=== PATIENT | female | born 1990 | race Caucasian/White ===

== ENCOUNTER 2019-01-01 07:49 | Emergency (ER) | payer OTHER ==
[2019-01-01 08:11] VITALS: BP 109/72
--- NOTE | 2019-01-01 08:20 | UC ---
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 Has had contact with strep. - History of Current Complaint Stated Complaint: ST Time Seen by Provider: 01/01/19 08:09 Hx Obtained From: Patient Hx Last Menstrual Period: 12/12/18 Onset/Duration: Gradual Onset, Lasting Days - 3 Severity: Moderate Pain Intensity: 8 Cough: None Associated Signs & Symptoms: Positive: Dysphagia - Epiglottits Risk Factors Epiglottis Risk Factors: Negative - Allergies/Home Medications Allergies/Adverse Reactions: Allergies Allergy/AdvReac Type Severity Reaction Status Date / Time No Known Allergies Allergy Verified 01/01/19 08:09 Home Medications: Home Medications Norethindrone/Eth Est .07/04NF [Junel (NF)] 1 tab PO DAILY 01/01/19 [ History Confirmed 01/01/19] PMH/Surg Hx/FS Hx/Imm Hx Previously Healthy: Yes - Surgical History Surgical History: None - Family History Known Family History: Positive: Non-Contributory - Social History Occupation: Employed Full-time Alcohol Use: Occasionally Substance Use Type: None Smoking Status (MU): Never Smoked Tobacco Review of Systems All Other Systems Reviewed And Are Negative: Yes Constitutional: Positive: Fatigue Skin: Positive: Negative Eyes: Positive: Negative ENT: Positive: Sore Throat Respiratory: Positive: Negative Cardiovascular: Positive: Negative Gastrointestinal: Positive: Negative Genitourinary: Positive: Negative Motor: Positive: Negative Neurovascular: Positive: Negative Musculoskeletal: Positive: Negative Neurological: Positive: Negative Psychological: Positive: Negative Is Patient Immunocompromised?: No Physical Exam Triage Information Reviewed: Yes Appearance: No Pain Distress, Ill-Appearing - looks mildly unwell Vital Signs: Initial Vital Signs Temp 98.2 F 01/01/19 08:07 Pulse 91 01/01/19 08:07 Resp 14 01/01/19 08:07 BP 109/72 01/01/19 08:07 Pulse Ox 99 01/01/19 08:07 Eyes: Positive: Conjunctiva Clear ENT: Positive: Pharyngeal erythema, Tonsillar swelling, Tonsillar exudate Dental Exam: Normal Neck: Positive: Supple, Nontender, Enlarged Nodes @ - tonsillar Respiratory: Positive: Lungs clear, Normal breath sounds Cardiovascular: Positive: RRR, No Murmur Musculoskeletal Exam: Normal Neurological Exam: Normal Psychological Exam: Normal Skin Exam: Normal Diagnostics - Laboratory Lab Results: Rapid strep negative. Throat Pain/Nasal Course/Dx - Course Course Of Treatment: Rapid strep negative but clinical findings consistent with acute tonsillitis. Offered full culture and monitoring v treatment with antibiotics on speculation , and patient chose treatment at this time. - Differential Dx/Diagnosis Differential Diagnosis/HQI/PQRI: Laryngitis, Pharyngitis, Tonsillitis, URI Provider Diagnosis: Tonsillitis with exudate Discharge ED - Sign-Out/Discharge Documenting (check all that apply): Patient Departure All imaging exams completed and their final reports reviewed: No Studies - Discharge Plan Condition: Good Disposition: HOME Prescriptions: Amoxicillin PO (*) [Amoxicillin 875 MG (*)] 875 mg PO BID #20 tab Patient Education Materials: Tonsillitis (ED) Referrals: No Primary Care Phys,NOPCP [Primary Care Provider] - Additional Instructions: Begin treatment with amocillin for treatment of tonsillitis. Use warm water and salt gargles, wiht use of ibuprofen or acetaminophen for control of pain. As reviewed, there is a small risk of interference of the antibiotic with the effectiveness of your contraception. Use of a back up method is advised. - Billing Disposition and Condition Condition: GOOD Disposition: Home
== END 2019-01-01 08:37 | disposition home or self-care (01) ==
LOC: UCCORT 07:49
DX: J03.90 Acute tonsillitis, unspecified (principal)
CPT/HCPCS: 87651; 99202; G0463

== ENCOUNTER 2019-01-09 12:16 | Emergency (ER) | payer OTHER ==
[2019-01-09 13:19] VITALS: BP 103/72
--- NOTE | 2019-01-09 13:38 | ED ---
Skin Complaint - HPI Summary HPI Summary: 28 yr old female with the complaint of rash. Onset of symptoms over the past day with an itchy rash that is now generalized. She has been on Amoxicillin for one week for tonsillitis. She tested negative for strep per the patient. No other complaints. Her throat is all better now. No drooling, no stridor no lip swelling. - History of Current Complaint Chief Complaint: UCRash Time Seen by Provider: 01/09/19 13:22 Stated Complaint: HIVES Hx Last Menstrual Period: 3 weeks Pain Intensity: 3 - Allergy/Home Medications Allergies/Adverse Reactions: Allergies Allergy/AdvReac Type Severity Reaction Status Date / Time No Known Allergies Allergy Verified 01/09/19 13:20 Home Medications: Home Medications Fexofenadine (NF) [Desi (NF)] 120 mg PO ONCE PRN 01/09/19 [History Confirmed 01/09/19] diphenhydrAMINE HCl [Benadryl Allergy] 50 mg PO ONCE PRN 01/09/19 [History Confirmed 01/09/19] PMH/Surg Hx/FS Hx/Imm Hx Infectious Disease History: No Infectious Disease History: Denies: Traveled Outside the [place] in Last 30 Days - Family History Known Family History: Positive: Non-Contributory - Social History Alcohol Use: Occasionally Substance Use Type: Reports: None Substance Use Comment - Amount & Last Used: 10-20 oz. coffee/ daily Smoking Status (MU): Never Smoked Tobacco Review of Systems Constitutional: Negative Positive: Rash All Other Systems Reviewed And Are Negative: Yes Physical Exam Triage Information Reviewed: Yes Vital Signs On Initial Exam: Initial Vitals Temp Pulse Resp BP Pulse Ox 98.4 F 64 18 103/72 100 01/09/19 13:11 01/09/19 13:11 01/09/19 13:11 01/09/19 13:11 01/09/19 13:11 Vital Signs Reviewed: Yes Appearance: Positive: Well-Appearing, No Pain Distress Skin: Positive: Other - generalized maculo papular rash consitent with drug eruption. Head/Face: Positive: Normal Head/Face Inspection Eyes: Positive: Normal, EOMI ENT: Positive: Pharyngeal erythema, TMs normal Neck: Positive: Supple, Nontender Respiratory/Lung Sounds: Positive: Clear to Auscultation, Breath Sounds Present Cardiovascular: Positive: RRR. Negative: Murmur Abdomen Description: Negative: Distended Musculoskeletal: Positive: Strength/ROM Intact Neurological: Positive: Sensory/Motor Intact, Alert, Oriented to Person Place, Time, CN Intact II-III Psychiatric: Positive: Normal Diagnostics - Vital Signs Vital Signs Temp Pulse Resp BP Pulse Ox 01/09/19 13:11 98.4 F 64 18 103/72 100 - Laboratory Lab Statement: Any lab studies that have been ordered have been reviewed, and results considered in the medical decision making process. Course/Dx - Course Course Of Treatment: 28 yr old with drug rash. dc the amox. Medrol dose luis - Diagnoses Provider Diagnoses: Drug eruption Discharge ED - Sign-Out/Discharge Documenting (check all that apply): Patient Departure All imaging exams completed and their final reports reviewed: No Studies - Discharge Plan Condition: Good Disposition: HOME Prescriptions: methylPREDNISolone [Medrol Dosepak 4 MG*] 4 mg PO .SEE LUIS INSTRUCTION #1 luis Patient Education Materials: Antibiotic Medication Allergy (ED), Adverse Drug Reaction (ED) Referrals: No Primary Care Phys,NOPCP [Primary Care Provider] - [facility] [place] [facility] [Outside] - 2 Days - Billing Disposition and Condition Condition: GOOD Disposition: Home
== END 2019-01-09 13:38 | disposition home or self-care (01) ==
LOC: UCCORT 12:16
DX: L27.0 Generalized skin eruption due to drugs and medicaments taken internally (principal); T36.0X5A Adverse effect of penicillins, initial encounter; Y92.9 Unspecified place or not applicable
CPT/HCPCS: 99212; G0463